=== PATIENT | male | born 1980 | race Caucasian/White ===

== ENCOUNTER 2021-08-21 01:15 | Inpatient (IN) | payer MEDICAID, SELFPAY ==
[~2021-08-21] VITALS: Ht 182.9 cm; Wt 124.9 kg
[2021-08-21 01:31] VITALS: BP 127/101
[2021-08-21] MEDS ORDERED: NACL 0.9% 1,000 ML IV ONE (01:45)
[2021-08-21] MEDS ORDERED: INSULIN REGULAR, HUMAN 100 UNIT/ML VIAL IVP ONE (01:45)
--- NOTE | 2021-08-21 01:45 | NUR ---
PT AMBULATED TO BED 2
--- NOTE | 2021-08-21 02:01 | NUR ---
PT REFUSED COVID ALONDRA TEST ER/MD DR Cooley NOTIFTED
--- NOTE | 2021-08-21 02:03 | NUR ---
RECEIVED PT WITH REQUEST FOR MEDICATION REFILL RAN OUT OF INSULIN 4 DAYS AGO [id number], BS [id number]
--- NOTE | 2021-08-21 02:05 | NUR ---
SL ESTABLISHED LEFT A/C, LABS DRAWN, VBG DRAWN
[2021-08-21 02:21] LABS: APPEARANCE,URINE CLEAR (CLEAR); BILIRUBIN,URINE NEGATIVE (NEGATIVE); BLOOD, URINE NEGATIVE (NEGATIVE); COLOR,URINE YELLOW (YELLOW); LEUKOCYTE ESTERASE ,URINE NEGATIVE (NEGATIVE); NITRITE, URINE NEGATIVE (NEGATIVE); PH,URINE 6.5 (5.0-9.0); UGLUCOSE 3+ (NEGATIVE)
[2021-08-21 02:22] LABS: BASOPHILS # (AUTO) 0.1 K/uL (0.00-0.22); BASOPHILS % (AUTO) 0.9 % (0.0-2.0); EOSINOPHILS # (AUTO) 0.1 K/uL (0-0.4); EOSINOPHILS % (AUTO) 1.6 % (0.0-4.0); HEMATOCRIT 44.1 % (36-52); HEMOGLOBIN 15.1 g/dL (12.0-18.0); LYMPHOCYTES # (AUTO) 1.8 K/uL (2.0-11.5); LYMPHOCYTES % (AUTO) 19.1 % (20.5-51.1); MEAN CORPUSCULAR HEMOGLOBIN 29 pg (27-31); MEAN CORPUSCULAR HGB CONC 34 g/dL (33-37); MEAN CORPUSCULAR VOLUME 84.5 fL (80-94); MONOCYTES # (AUTO) 0.5 K/uL (0.8-1.0); MONOCYTES % (AUTO) 5.3 % (1.7-9.3); NEUTROPHILS # (AUTO) 6.7 K/uL (1.8-7.7); NEUTROPHILS % (AUTO) 73.1 % (42.2-75.2); PLATELET COUNT (AUTO) 258 K/uL (140-450); RED BLOOD CELL COUNT(AUTO) 5.21 MIL/uL (4.20-6.10); RED CELL DISTRIBUTION WIDTH 12.5 % (11.6-13.7); WHITE BLOOD COUNT (AUTO) 9.2 K/uL (4.8-10.8)
[2021-08-21 02:43] LABS: ALBUMIN 3.8 g/dL (3.4-5.0); ANION GAP 10.7 (8-16); ASPARTATE AMINOTRANSFERASE 36 U/L (15-37); CARBON DIOXIDE 31.6 mmol/L (21-32); CHLORIDE 96 mmol/L (98-107); CREATININE 0.9 mg/dL (0.6-1.3); GFR ARICAN-AMERICAN 120 mL/min (>90); GLUCOSE 375 mg/dL (74-106); POTASSIUM 3.3 mmol/L (3.5-5.1); SODIUM SERUM 135 mmol/L (136-145); TOTAL BILIRUBIN 1.2 mg/dL (0.0-1.0); UREA NITROGEN, BLOOD 8 mg/dL (7-18)
[2021-08-21 03:47] LABS: ACETONE, SERUM NEGATIVE (NEGATIVE)
--- NOTE | 2021-08-21 04:00 | NUR ---
RESTING IN BED WITH EYES CLOSED. INSULIN IVP WAS GIVEN ORDERED
[2021-08-21] MEDS ORDERED: ONDANSETRON 4 MG/2 ML VIAL IM/IVP PRN (05:35)
[2021-08-21] MEDS ORDERED: SODIUM PHOS / POTASSIUM PHOS 1 PKT PDR PO PRN (05:35)
[2021-08-21] MEDS ORDERED: NACL 0.9% 1,000 ML IV SCH (05:35)
[2021-08-21] MEDS ORDERED: POTASSIUM CHLORIDE 10 MEQ TABER PO PRN (05:35)
[2021-08-21] MEDS ORDERED: MORPHINE SULFATE 2 MG/ML SYR IVP PRN (05:35)
[2021-08-21] MEDS ORDERED: MAGNESIUM OXIDE 400 MG TAB PO PRN (05:35)
[2021-08-21] MEDS ORDERED: ACETAMINOPHEN 325 MG TAB PO PRN (05:35)
[2021-08-21] MEDS ORDERED: HYDROcodone/APAP 5/325 MG 1 TAB TAB PO PRN (05:35)
[2021-08-21] MEDS ORDERED: DOCUSATE SODIUM 100 MG GELCAP PO PRN (05:35)
[2021-08-21] MEDS ORDERED: INSULIN LISPRO SLIDING SCALE 100 UNITS/ML VIAL SUBQ PRN (05:45)
[2021-08-21] MEDS ORDERED: DEXTROSE 50% 50 ML SYR IVP PRN (05:45)
--- NOTE | 2021-08-21 06:00 | NUR ---
REMAINS RESTING IN BED. AWAKENS WITH EASE AND ONCE AGAIN REFUSES ALONDRA SWAB
[2021-08-21 07:03] LABS: BARBITURATE, URINE NEGATIVE ng/ml (NEG <=200); BENZODIAZEPINE, URINE NEGATIVE ng/mL (NEG <=200)
[2021-08-21 07:04] LABS: CANNABINOID, URINE NEGATIVE ng/mL (NEG <=50); COCAINE, URINE NEGATIVE ng/mL (NEG <=300); OPIATE, URINE NEGATIVE ng/mL (NEG <=2000); PHENCYCLIDINE SCREEN,URINE NEGATIVE ng/mL (NEG <=25)
--- NOTE | 2021-08-21 07:15 | NUR ---
Received patient who reports dizziness x 4 days. Patient reports bilateral leg pain, 8/10, sharp/intermittent, non-radiating. Pt states he ran out of insulin and states symptoms worsen with walking. Pt states nausea. Denies chest pain, abdominal pain, diarrhea, fever, chills.
--- NOTE | 2021-08-21 07:15 | NUR ---
Report and continuation of care received from ASHLEIGH Davis.
--- NOTE | 2021-08-21 07:20 | NUR ---
Patient resting in position of comfort with both eyes open c/o shivering. Pt provided with warm blankets. All pt needs met.
[2021-08-21] MEDS ORDERED: BLOOD GLUCOSE MONITORING 1 DEV DEV FS SCH (07:30)
--- NOTE | 2021-08-21 08:38 | NUR ---
SpO2 88% on room air. Patient awaken SpO2 96% on room air; pt reports hx sleep apnea and that is normal to self.
--- NOTE | 2021-08-21 08:43 | NUR ---
LILY PATEL GAVE TO [employer].
[2021-08-21] MEDS ORDERED: ATORVASTATIN 20 MG TAB PO SCH (09:00)
[2021-08-21] MEDS ORDERED: PANTOPRAZOLE 40 MG TABEC PO SCH (09:00)
[2021-08-21 10:31] LABS: ANION GAP 7.3 (8-16); CREATININE 0.8 mg/dL (0.6-1.3); POTASSIUM 3.3 mmol/L (3.5-5.1)
--- NOTE | 2021-08-21 11:05 | NUR ---
Dr. Aranda is evaluating pt at bedside.
[2021-08-21 11:17] LABS: MAGNESIUM 2.1 mg/dL (1.8-2.4); PHOSPHORUS 4.2 mg/dL (2.5-4.9)
[2021-08-21] MEDS ORDERED: BLOO1EAC40 MC (11:48)
[2021-08-21] MEDS ORDERED: ATOR20TA40 PO (11:48)
[2021-08-21] MEDS ORDERED: LANC1COM6 MC (11:48)
[2021-08-21] MEDS ORDERED: METF-336 PO (11:48)
[2021-08-21] MEDS ORDERED: POTASSIUM CHLORIDE 10 MEQ TABER PO SCH (12:01)
--- NOTE | 2021-08-21 12:56 | NUR ---
Patient discharged with v/s stable. Written and verbal after care instructions given and explained. Patient verbalized understanding. Ambulatory with steady gait. All questions addressed prior to discharge. Advised to follow up with PMD.
[2021-08-21 12:57] VITALS: BP 116/79
== END 2021-08-21 12:56 | disposition home or self-care (01) | DRG 52 ==
LOC: MED 01:15 → MMU 05:38
PROVIDERS: ADMIT Hospitalist; ATTEND Hospitalist
DX: G92.9 Unspecified toxic encephalopathy (principal); U07.1 COVID-19; E87.1 Hypo-osmolality and hyponatremia; E11.65 Type 2 diabetes mellitus with hyperglycemia; E87.6 Hypokalemia; E80.6 Other disorders of bilirubin metabolism; F15.90 Other stimulant use, unspecified, uncomplicated; I10 Essential (primary) hypertension
CPT/HCPCS: 36415; 71045; 80048; 80053; 80305; 81003; 82009; 82948; 83036; 83735; 84100; 84484; 85025; 93005; 96361; 96372; 96374; 99285; J1815; J7030; Q0092